=== PATIENT | male | born 1935 | race Caucasian/White ===

== ENCOUNTER 2017-04-07 00:52 | Emergency (ER) | payer OTHER ==
[~2017-04-07] VITALS: Ht 177.8 cm; Wt 91.6 kg
[~2017-04-07 00:52] MED LIST: ACET500; ALLER-CLEAR PO; ALLO300 PO; ASPI81EC PO; CLOP75 PO; Efudex40 GM TP; FLONASE ALLERG9.9 ML; Ferrous Sulfat325 MG; HYDCHL25 PO; NIASPAN PO; NITR.4SL SL; PANT20 PO; ROSU10TA PO; ROXICODONE5 MG PO; SAW PALMETTO PO; SPIR25 PO; Saw Palmetto C1 EACH PO; Saw Palmetto450 MG PO; Sm Glucosamine1 EACH PO; VERA240ERA PO; VITAMIN B122500 MC1 PO; Vitamin C100 M1 PO; WARF4 PO; [UNRECOGNIZED DRUG - OTHER] PO
== END 2017-04-07 04:30 | disposition home or self-care (01) ==
LOC: ER 00:52
DX: L50.9 Urticaria, unspecified (principal); L25.9 Unspecified contact dermatitis, unspecified cause; Z88.0 Allergy status to penicillin; Z88.8 Allergy status to other drugs, medicaments and biological substances; Z79.899 Other long term (current) drug therapy; Z87.891 Personal history of nicotine dependence
CPT/HCPCS: 99283; Q0163

== ENCOUNTER → 2017-06-13 | Outpatient (CLI) | payer OTHER | END | disposition home or self-care (01) | LOC: LAB SHORT 07:57 → PLD 07:57 | DX: D48.5 Neoplasm of uncertain behavior of skin (principal) | CPT/HCPCS: 88305 ==

== ENCOUNTER 2019-06-11 15:51 | Emergency (ER) | payer OTHER ==
[~2019-06-11] VITALS: Ht 177.8 cm; Wt 102.1 kg
[2019-06-11 16:29] LABS: BASOPHILS ABSOLUTE AUTO 0.06 K/mm3 (0.00-0.23); BASOPHILS PERCENT AUTO 1 % (0-2); EOSINOPHILS ABSOLUTE AUTO 0.27 K/mm3 (0.00-0.68); EOSINOPHILS PERCENT AUTO 2 % (0-6); Hematocrit 53.2 % (37.0-53.0); Hemoglobin 18.1 g/dL (13.5-17.5); IMMATURE GRAN ABSOLUTE AUTO 0.03 K/mm3 (0.00-0.10); IMMATURE GRAN PERCENT AUTO 0 % (0-1); LYMPHOCYTES ABSOLUTE AUTO 3.38 K/mm3 (0.84-5.20); LYMPHOCYTES PERCENT AUTO 30 % (21-46); MONOCYTES ABSOLUTE AUTO 1.48 K/mm3 (0.16-1.47); MONOCYTES PERCENT AUTO 13 % (4-13); Mean Corpuscular HGB 32.6 pg (26.0-34.0); Mean Corpuscular Volume 96 fL (80-100); NEUTROPHILS ABSOLUTE AUTO 6.16 K/mm3 (1.96-9.15); NEUTROPHILS PERCENT AUTO 54 % (41-73); Platelet Count 276 K/mm3 (150-400); RDW Coefficient Variation 14.7 % (11.7-14.2); RDW Standard Deviation 51.8 fL (35.1-46.3); Red Blood Cell Count 5.55 M/mm3 (4.30-5.90); White Blood Cell Count 11.38 K/mm3 (4.00-11.30)
[2019-06-11 16:48] LABS: Alanine Aminotransfer (ALT/SGP 23 U/L (12-78); Albumin, Blood 3.9 g/dL (3.4-5.0); Albumin/Globulin Ratio 0.9 (0.8-1.8); Alk Phos 108 U/L (50-136); Anion Gap 8 mmol/L (6-16); Aspartate Aminotrans (AST/SGOT 24 U/L (12-37); Bilirubin, Total 0.8 mg/dL (0.1-1.0); Blood Urea Nitrogen 17 mg/dL (8-24); Bun/Creatinine Ratio 18.8 (12.0-20.0); CO2, Blood 24 mmol/L (21-32); Chloride, Blood 104 mmol/L (98-108); Globulin, Blood 4.5 g/dL (2.2-4.0); Glomerular Filtration Rate >60 (60-); Glucose, Blood 106 mg/dL (70-99); Sodium, Blood 136 mmol/L (136-145); Total Protein, Blood 8.4 g/dL (6.4-8.2)
[2019-06-11 17:21] LABS: Source, Urine Clean Catch
[2019-06-11 17:29] LABS: Bilirubin, Urine Neg (Neg); Blood, Urine 1+ (Neg); Glucose Qualitative, Urine Neg (Neg); Ketones, Urine Neg (Neg); Leukocyte Esterase, Urine Neg (Neg); Nitrite, Urine Neg (Neg); Protein, Urine 1+ (Neg); Specific Gravity, Urine 1.015 (1.003-1.022); Urobilinogen, Urine NORM (Normal)
[2019-06-11 17:34] LABS: Appearance, Urine Clear (Clear); Color, Urine Yellow (P-Yellow); Red Blood Cells, Urine 0-2 /hpf (0-2); Squamous Epithelial Cells Few /hpf (Few); White Blood Cells, Urine 0-2 /hpf (0-5)
[2019-06-11 17:35] LABS: Bacteria Few /hpf
[2019-06-11] MEDS ORDERED: EUTHYROX25 MCG PO (19:03)
== END 2019-06-11 19:19 | disposition home or self-care (01) ==
LOC: ER 15:51
PROVIDERS: Physician Assistant
DX: K59.00 Constipation, unspecified (principal); K56.7 Ileus, unspecified; Z88.0 Allergy status to penicillin; Z88.8 Allergy status to other drugs, medicaments and biological substances; Z79.899 Other long term (current) drug therapy; Z87.891 Personal history of nicotine dependence
CPT/HCPCS: 36415; 74018; 80053; 81001; 83690; 83735; 85025; 99283-25

== ENCOUNTER → 2020-12-30 | Outpatient (CLI) | payer OTHER ==
[~2020-12-30] MED LIST changes: +EUTHYROX25 MCG PO
[2020-12-31 13:57] LABS: Stool Occult Bld Immuno 1 Positive (NEGATIVE)
== END ==
LOC: LAB SHORT 17:15 → LAB 17:15
PROVIDERS: Internal Medicine Gastroenterology
DX: D50.9 Iron deficiency anemia, unspecified (principal)
CPT/HCPCS: 82274

== ENCOUNTER 2022-09-21 21:00 | Inpatient (IN) | payer OTHER ==
[~2022-09-21] VITALS: Ht 177.8 cm; Wt 99.8 kg
[~2022-09-21 21:00] MED LIST changes: +B-121000 MC3 PO; -VITAMIN B122500 MC1 PO
[2022-09-21 21:25] LABS: BASOPHILS ABSOLUTE AUTO 0.05 K/mm3 (0.00-0.23); BASOPHILS PERCENT AUTO 0 % (0-2); EOSINOPHILS ABSOLUTE AUTO 0.11 K/mm3 (0.00-0.68); EOSINOPHILS PERCENT AUTO 1 % (0-6); Hemoglobin 15.8 g/dL (13.5-17.5); IMMATURE GRAN ABSOLUTE AUTO 0.04 K/mm3 (0.00-0.10); IMMATURE GRAN PERCENT AUTO 0 % (0-1); LYMPHOCYTES ABSOLUTE AUTO 2.39 K/mm3 (0.84-5.20); LYMPHOCYTES PERCENT AUTO 19 % (21-46); MONOCYTES ABSOLUTE AUTO 1.42 K/mm3 (0.16-1.47); MONOCYTES PERCENT AUTO 11 % (4-13); Mean Corpuscular HGB 32.3 pg (26.0-34.0); Mean Corpuscular HGB Conc 34.3 g/dL (31.5-36.5); Mean Corpuscular Volume 94 fL (80-100); Mean Platelet Volume 10.5 fL (9.1-12.4); NEUTROPHILS ABSOLUTE AUTO 8.91 K/mm3 (1.96-9.15); NEUTROPHILS PERCENT AUTO 69 % (41-73); Platelet Count 415 K/mm3 (150-400); RDW Coefficient Variation 13.7 % (11.7-14.2); RDW Standard Deviation 47.4 fL (35.1-46.3); Red Blood Cell Count 4.89 M/mm3 (4.30-5.90); White Blood Cell Count 12.92 K/mm3 (4.00-11.30)
[2022-09-21 21:41] LABS: D-Dimer, Quantitative 1.45 mg/L FEU (0.00-0.52); International Normalized Ratio 1.04; Prothrombin Time Results 10.9 Sec (9.7-11.5)
[2022-09-21 21:42] LABS: Albumin, Blood 2.9 g/dL (3.4-5.0); Albumin/Globulin Ratio 0.6 (0.8-1.8); Bilirubin, Total 0.5 mg/dL (0.1-1.0); Bun/Creatinine Ratio 17.1 (12.0-20.0); Calcium, Blood 9.3 mg/dL (8.5-10.1); Creatinine, Blood 0.88 mg/dL (0.60-1.20); Globulin, Blood 4.8 g/dL (2.2-4.0); Potassium, Blood 4.2 mmol/L (3.5-5.5); Total Protein, Blood 7.7 g/dL (6.4-8.2)
[2022-09-21] MEDS ORDERED: LEVSOD88 PO (23:30)
[2022-09-22 00:02] VITALS: BP 124/71
--- NOTE | 2022-09-22 01:30 | NUR ---
REPORT RECIEVED FROM MARILUZ SCHWARZ. ASSUMED CARE OF PATIENT AND I AGREE W/HIS ASSESSMENT FINDINGS. PT KNOWS TO CALL ASSIST PRN. BED ALARM ON FOR POSSIBLE FALL RISK. FIRE IGNITION ASSESSMENT AND EDUCATION COMPLETED.
[2022-09-22] MEDS ORDERED: Vitamin D1000 UNI1 PO (03:23)
[2022-09-22] MEDS ORDERED: Flonase 0.05% N16 GM (03:24)
[2022-09-22] MEDS ORDERED: GLUC500 PO (03:25)
[2022-09-22] MEDS ORDERED: IMIQUIMOD1 EACH TOP (03:26)
[2022-09-22] MEDS ORDERED: Loratadine10 MG PO (03:27)
[2022-09-22] MEDS ORDERED: MULVITA PO (03:27)
[2022-09-22] MEDS ORDERED: Saw Palmetto160 MG PO (03:28)
[2022-09-22] MEDS ORDERED: ZINC SULFATE PO (03:29)
--- NOTE | 2022-09-22 04:41 | NUR ---
SUMMARY: PT A/OX3-4, IS PLEASANT AND COOPERATIVE W/CARE AND SPECIFIES NEEDS APPROPRIATELY. HE'S 1PA OOB W/FWW AND BED ALARM IS ON FOR FALL RISK. LS ARE TIGHT W/SPO2 WNL ON 2L 02 VIA NC, RA IS BASELINE. IV ABX RECIEVED FOR PNM. D.DIMER ELEVATED BUT NOTATED THIS ER SUGGESTING ACUTE INFECTIOUS PROCESS PROBABLE CAUSE. NO S/S PE OR ACUTE RESP DISTRESS. ABDO IS SLIGHTLY DISTENDED BUT IS SOFT/NONTENDER AND PT DENIES N/V OR PAIN. PT REFUSED SCD'S AND DENIED ALL OTHER COMPLAINTS. NO ACUTE CHANGES, VSS/AFEBRILE. WCTM/REPORT TO DAY RN.
[2022-09-22 04:57] LABS: BASOPHILS ABSOLUTE AUTO 0.06 K/mm3 (0.00-0.23); BASOPHILS PERCENT AUTO 1 % (0-2); EOSINOPHILS ABSOLUTE AUTO 0.22 K/mm3 (0.00-0.68); EOSINOPHILS PERCENT AUTO 2 % (0-6); Hematocrit 42.3 % (37.0-53.0); Hemoglobin 14.4 g/dL (13.5-17.5); IMMATURE GRAN ABSOLUTE AUTO 0.06 K/mm3 (0.00-0.10); IMMATURE GRAN PERCENT AUTO 1 % (0-1); LYMPHOCYTES ABSOLUTE AUTO 2.35 K/mm3 (0.84-5.20); LYMPHOCYTES PERCENT AUTO 20 % (21-46); MONOCYTES ABSOLUTE AUTO 1.83 K/mm3 (0.16-1.47); MONOCYTES PERCENT AUTO 16 % (4-13); Mean Corpuscular HGB 32.4 pg (26.0-34.0); Mean Corpuscular Volume 95 fL (80-100); Mean Platelet Volume 10.6 fL (9.1-12.4); NEUTROPHILS ABSOLUTE AUTO 7.29 K/mm3 (1.96-9.15); NEUTROPHILS PERCENT AUTO 62 % (41-73); Platelet Count 384 K/mm3 (150-400); RDW Coefficient Variation 13.8 % (11.7-14.2); RDW Standard Deviation 48.2 fL (35.1-46.3); Red Blood Cell Count 4.45 M/mm3 (4.30-5.90); White Blood Cell Count 11.81 K/mm3 (4.00-11.30)
[2022-09-22 05:38] LABS: Albumin, Blood 2.6 g/dL (3.4-5.0); Albumin/Globulin Ratio 0.6 (0.8-1.8); Bilirubin, Total 0.5 mg/dL (0.1-1.0); Bun/Creatinine Ratio 16.8 (12.0-20.0); Calcium, Blood 8.9 mg/dL (8.5-10.1); Creatinine, Blood 0.83 mg/dL (0.60-1.20); Globulin, Blood 4.2 g/dL (2.2-4.0); Potassium, Blood 4.1 mmol/L (3.5-5.5); Total Protein, Blood 6.8 g/dL (6.4-8.2)
[2022-09-22 06:06] VITALS: BP 128/75
[2022-09-22 07:59] VITALS: BP 135/77
--- NOTE | 2022-09-22 15:13 | NUR ---
FIRE NOTE PT ASSESSED AND EDCUATED ABOUT FIRE SAFETY AND OXYGEN USEAGE. CONTINUEPOC.
[2022-09-22 15:34] VITALS: BP 132/83
[2022-09-22 17:01] LABS: Bun/Creatinine Ratio 17.9 (12.0-20.0); Calcium, Blood 9.1 mg/dL (8.5-10.1); Creatinine, Blood 0.78 mg/dL (0.60-1.20)
--- NOTE | 2022-09-22 18:02 | NUR ---
SHIFT NOTE PT ACTIVE. FORGETS TO CALL BEFORE CLIMBING OOB UNAIDED. UNSTEADY. NEEDS CUEING FOR SAFETY. IV FLUIDS COMPLETE. VOIDING WELL. DECENT APPETITE. DENIES PAIN/DISCOMFORT. STARTED ON XARELTO. CONTINUE POC.
[2022-09-22 19:43] VITALS: BP 133/80
[2022-09-23 04:22] VITALS: BP 125/79
--- NOTE | 2022-09-23 04:59 | NUR ---
SHIFT SUMMARY ADMITTED FOR SOB/CP. FULL CODE. PLAN IS FOR DC HOME WHEN STABLE ENOUGH FOR DC. HE IS ON XARELTO. HE IS CONFUSED AND WEAK. VA PT. 2-3 LPM O2, HE USES A CPAP @ HS. ON REGULAR DIET. 1 ASSIST, HE CAN BE IMPULSIVE. WOBBLY AT TIMES WHEN AMBULATING. HE HAS BEEN KNOWN TO PULL AT LINES OR TUBES. EXTREMELY [place].
[2022-09-23 05:44] LABS: Hematocrit 44.7 % (37.0-53.0); Hemoglobin 15.3 g/dL (13.5-17.5); Mean Corpuscular HGB 32.8 pg (26.0-34.0); Mean Corpuscular HGB Conc 34.2 g/dL (31.5-36.5); Mean Corpuscular Volume 96 fL (80-100); Mean Platelet Volume 11.4 fL (9.1-12.4); Platelet Count 396 K/mm3 (150-400); RDW Standard Deviation 49.2 fL (35.1-46.3); Red Blood Cell Count 4.66 M/mm3 (4.30-5.90); White Blood Cell Count 11.09 K/mm3 (4.00-11.30)
[2022-09-23 07:32] VITALS: BP 131/91
[2022-09-23 16:36] VITALS: BP 134/80
--- NOTE | 2022-09-23 17:54 | NUR ---
SHIFT NOTE PT ALERT. RA SAT 84% WITH HR 103 AFTER SHOWER. 2L N/C 93%. RESP EVEN AND UNALBORED. VOICE CLEAR, STRONG. BED ALARM ON D/T MULTIPLE ATTEMPTS TO CLIMB OOB WITHOUT HELP. HE WILL NOT TAKE CUEING FROM HIS . HE TRIES TO GET UP TANGLED IN OXYGEN TUBING AND SAT CABLE. VSS. FAMILY HERE. CONTINUE POC.
[2022-09-23 20:43] VITALS: BP 136/76
[2022-09-24 04:12] VITALS: BP 135/73
--- NOTE | 2022-09-24 06:12 | NUR ---
NO CONFUSION NOTED THIS MORNING IN PREVIOUS SHIFTS. PT CALLS APPROPRIATELY, DID NOT ATTEMPT TO GET OOB ALONE, NO PULLING AT IV. FIRE SAFETY REVIEWED. PT CURRENTLY STABLE ON RA AT 90-93% SATURATION, WILL CONTINUE TO MONITOR.
[2022-09-24 07:45] VITALS: BP 124/73
[2022-09-24] MEDS ORDERED: XARELTO20 MG PO (12:15)
--- NOTE | 2022-09-24 13:11 | NUR ---
DISCHARGE SUMMARY PT DISCHARGED THIS SHIFT VIA WHEELCHAIR WITH TO DRIVE. DISCHARGE SUMMARY REVIEWED WITH QUESTIONS ANSWERED. ROLAND HANDOUT GIVEN AND REVIEWED, TEACHBACK DONE. DENIES HAVING ANY SOURCES OF IGNITION ON PERSON, VISITORS DENY THE SAME, EDUCATED ON FIRE SAFETY AND PREVENTION. IV REMOVED PRIOR TO DISCHARGE, VITALS WNL.
== END 2022-09-24 13:07 | disposition home or self-care (01) | DRG 175 ==
LOC: ER 21:00 → MEDS 23:31 → ENPENDDIS 09-24 10:52 → MEDS 09-24 13:07
PROVIDERS: Emergency Medicine; Internal Medicine; Student in an Organized Health Care Education/Training Program; ADMIT Internal Medicine
DX: I26.99 Other pulmonary embolism without acute cor pulmonale (principal); J96.01 Acute respiratory failure with hypoxia; R07.9 Chest pain, unspecified; K46.9 Unspecified abdominal hernia without obstruction or gangrene; E03.9 Hypothyroidism, unspecified; M10.9 Gout, unspecified; K64.9 Unspecified hemorrhoids; I25.2 Old myocardial infarction; Z98.49 Cataract extraction status, unspecified eye; Z98.890 Other specified postprocedural states; Z88.0 Allergy status to penicillin; Z88.8 Allergy status to other drugs, medicaments and biological substances; Z79.890 Hormone replacement therapy; Z79.899 Other long term (current) drug therapy; Z90.81 Acquired absence of spleen; Z87.19 Personal history of other diseases of the digestive system; Z90.49 Acquired absence of other specified parts of digestive tract; Z87.891 Personal history of nicotine dependence
CPT/HCPCS: 36415; 71045; 71260; 80048; 80053; 83605; 84145; 84484; 85025; 85027; 85379; 85610; 87040; 93005; 93010; 93970; 94660; 94762; 96365; 96375; 99285-25; A9270; J0456; J0696; J1650; J7030; J7050; Q9967

== ENCOUNTER → 2022-09-25 | Outpatient (CLI) | payer OTHER ==
[~2022-09-25] MED LIST changes: +Flonase 0.05% N16 GM; +GLUC500 PO; +IMIQUIMOD1 EACH TOP; +LEVSOD88 PO; +Loratadine10 MG PO; +MULVITA PO; +Saw Palmetto160 MG PO; +Vitamin D1000 UNI1 PO; +XARELTO20 MG PO; +ZINC SULFATE PO
[2022-09-27 15:09] LABS: Stool Occult Bld Immuno 1 Positive (NEGATIVE)
== END | disposition home or self-care (01) ==
LOC: LAB SHORT 16:00 → LAB 16:00
PROVIDERS: Internal Medicine Gastroenterology
DX: R19.5 Other fecal abnormalities (principal)
CPT/HCPCS: 82274

== ENCOUNTER 2022-09-27 12:51 | Emergency (ER) | payer OTHER ==
[~2022-09-27] VITALS: Ht 177.8 cm; Wt 92.1 kg
[2022-09-27 13:22] LABS: BASOPHILS ABSOLUTE AUTO 0.08 K/mm3 (0.00-0.23); BASOPHILS PERCENT AUTO 1 % (0-2); EOSINOPHILS ABSOLUTE AUTO 0.86 K/mm3 (0.00-0.68); EOSINOPHILS PERCENT AUTO 10 % (0-6); Hematocrit 43.6 % (37.0-53.0); Hemoglobin 14.8 g/dL (13.5-17.5); IMMATURE GRAN ABSOLUTE AUTO 0.05 K/mm3 (0.00-0.10); IMMATURE GRAN PERCENT AUTO 1 % (0-1); LYMPHOCYTES ABSOLUTE AUTO 2.59 K/mm3 (0.84-5.20); LYMPHOCYTES PERCENT AUTO 29 % (21-46); MONOCYTES ABSOLUTE AUTO 1.09 K/mm3 (0.16-1.47); MONOCYTES PERCENT AUTO 12 % (4-13); Mean Corpuscular HGB 32.5 pg (26.0-34.0); Mean Corpuscular HGB Conc 33.9 g/dL (31.5-36.5); Mean Corpuscular Volume 96 fL (80-100); Mean Platelet Volume 11.1 fL (9.1-12.4); NEUTROPHILS ABSOLUTE AUTO 4.35 K/mm3 (1.96-9.15); NEUTROPHILS PERCENT AUTO 48 % (41-73); Platelet Count 464 K/mm3 (150-400); RDW Coefficient Variation 13.8 % (11.7-14.2); RDW Standard Deviation 48.3 fL (35.1-46.3); Red Blood Cell Count 4.56 M/mm3 (4.30-5.90); White Blood Cell Count 9.02 K/mm3 (4.00-11.30)
[2022-09-27 13:34] LABS: International Normalized Ratio 1.26; Prothrombin Time Results 13.1 Sec (9.7-11.5)
[2022-09-27 14:08] LABS: Albumin, Blood 2.4 g/dL (3.4-5.0); Albumin/Globulin Ratio 0.6 (0.8-1.8); Bilirubin, Total 0.1 mg/dL (0.1-1.0); Bun/Creatinine Ratio 20.6 (12.0-20.0); Calcium, Blood 8.8 mg/dL (8.5-10.1); Creatinine, Blood 0.78 mg/dL (0.60-1.20); Globulin, Blood 4.3 g/dL (2.2-4.0); Potassium, Blood 3.8 mmol/L (3.5-5.5); Total Protein, Blood 6.7 g/dL (6.4-8.2)
[2022-09-27 15:20] VITALS: BP 137/96
== END 2022-09-27 15:26 | disposition home or self-care (01) ==
LOC: ER 12:51
PROVIDERS: Emergency Medicine
DX: R19.5 Other fecal abnormalities (principal); Z88.0 Allergy status to penicillin; Z88.8 Allergy status to other drugs, medicaments and biological substances; Z79.899 Other long term (current) drug therapy; I10 Essential (primary) hypertension; E11.9 Type 2 diabetes mellitus without complications; E78.5 Hyperlipidemia, unspecified; G47.33 Obstructive sleep apnea (adult) (pediatric); E03.9 Hypothyroidism, unspecified
CPT/HCPCS: 71260; 74177; 80053; 84484; 85025; 85379; 85610; 85730; 93005; 93010; 99285-25; Q9967